=== PATIENT | male | born 1975 | race Hispanic/Latino ===

== ENCOUNTER 2023-10-05 12:52 | Emergency (ER) | payer SELFPAY ==
[~2023-10-05] VITALS: Ht 172.7 cm; Wt 81.0 kg
[2023-10-05 13:31] VITALS: BP 119/54
[2023-10-05 14:00] VITALS: BP 116/56
[2023-10-05 14:30] VITALS: BP 117/63
[2023-10-05] MEDS ORDERED: ZPAK PO (14:53)
[2023-10-05] MEDS ORDERED: AMOX/K CLAV875 M1 PO (14:53)
[2023-10-05] MEDS ORDERED: VENTOLIN HFA108 MCG PO ×2 (14:56)
[2023-10-05 15:04] VITALS: BP 117/63
[2023-10-06] MEDS ORDERED: BENZONATATE200 MG PO (02:26)
[2023-10-06] MEDS ORDERED: PROAIR RES108 MCG/AC PO (02:26)
== END 2023-10-05 15:14 | disposition home or self-care (01) | DRG 195 ==
LOC: ED 12:52
DX: J18.9 Pneumonia, unspecified organism (principal); Z20.822 Contact with and (suspected) exposure to COVID-19
CPT/HCPCS: Q9967

== ENCOUNTER 2023-10-05 22:13 | Emergency (ER) | payer SELFPAY ==
[~2023-10-05] VITALS: Ht 172.7 cm; Wt 68.0 kg
[~2023-10-05 22:13] MED LIST: AMOX/K CLAV875 M1 PO; VENTOLIN HFA108 MCG PO; ZPAK PO
[2023-10-05] MEDS ORDERED: BENZONATATE 200 MG/CAP PO PRN (22:25)
[2023-10-05] MEDS ORDERED: DEXAMETHASONE SOD. PHOSPHATE 10 MG/ML VIAL IV ONE (22:25)
[2023-10-05] MEDS ORDERED: IPRATROPIUM-Albuterol 0.5MG-2.5MG/3 ML NEB ONE (22:25)
[2023-10-05] MEDS ORDERED: ALBUTEROL SULFATE 2.5 MG VIAL NEB ONE (22:30)
[2023-10-05] MEDS ORDERED: SODIUM CHLORIDE 0.9% 1,000 ML IV ONE (22:35)
[2023-10-05] MEDS ORDERED: SODIUM CHLORIDE 0.45% 1,000 ML IV PRN (22:35)
[2023-10-05] MEDS ORDERED: cefTRIAXone SODIUM 2 GM in SODIUM CHLORIDE 0.9% 100 ML IV ONE (22:35)
[2023-10-05 23:44] LABS: BASO% 0.5 % (0-3); EOS% 2.3 % (0-8); HEMATOCRIT 32.9 % (39.0-50.0); HEMOGLOBIN 11.6 g/dl (14.0-18.0); IMMATURE GRANULOCYTES 0.1 % (0.0-5.0); LYMPH% 15.5 % (15-41); MEAN CELL VOLUME 87.3 fL CALC (80.0-100.0); MEAN CORPUSCULAR HGB 30.8 pG CALC (26.0-32.0); MEAN CORPUSCULAR HGB CONC 35.3 g/dL CAL (32.0-36.0); MONO% 8.7 % (2-13); NEUT# 6.66 thou/uL (1.82-7.42); NEUT% 72.9 % (42-76); RED BLOOD COUNT 3.77 mill/uL (4.70-6.10); RED CELL DISTRI WIDTH 12.8 % (11.5-15.5)
[2023-10-05 23:48] LABS: INTERNATIONAL NORMALIZED RATIO 1.1 RATIO (0.7-1.3)
[2023-10-05 23:55] LABS: BILIRUBIN, TOTAL 0.7 mg/dL (0.2-1.3); CREATININE 0.7 mg/dL (0.7-1.3); POTASSIUM 3.7 mmol/l (3.5-5.1)
[2023-10-06] LABS: PROTHROMBIN TIME 10.4 SECONDS (9.0-12.5)
[2023-10-06 00:08] LABS: D-DIMER 1.11 mg/L (0.19-0.60)
[2023-10-06] MEDS ORDERED: BUMETANIDE 1 MG/4 ML VIAL IV ONE (00:35)
[2023-10-06 01:20] VITALS: BP 119/64
[2023-10-06 01:30] VITALS: BP 128/60
[2023-10-06 01:45] VITALS: BP 121/58
[2023-10-06 02:00] VITALS: BP 124/62
[2023-10-06 02:15] VITALS: BP 112/55
[2023-10-06] MEDS ORDERED: BENZONATATE200 MG PO (02:26)
[2023-10-06] MEDS ORDERED: PROAIR RES108 MCG/AC PO (02:26)
[2023-10-06 02:30] VITALS: BP 130/56
== END 2023-10-06 03:00 | disposition home or self-care (01) | DRG 195 ==
LOC: ED 22:13
PROVIDERS: Emergency Medicine
DX: J18.9 Pneumonia, unspecified organism (principal)
CPT/HCPCS: Q9967

== ENCOUNTER 2023-10-07 23:12 | Inpatient (IN) | payer SELFPAY ==
[~2023-10-07] VITALS: Ht 172.7 cm; Wt 81.2 kg
[~2023-10-07 23:12] MED LIST changes: +BENZONATATE200 MG PO; +PROAIR RES108 MCG/AC PO
[2023-10-07] MEDS ORDERED: ALBUTEROL SULFATE 2.5 MG VIAL IN ONE (23:15)
[2023-10-07] MEDS ORDERED: FAMOTIDINE 10MG/ML 2ML SDV IV ONE (23:20)
[2023-10-07 23:27] VITALS: BP 145/66
[2023-10-07 23:31] VITALS: BP 132/67
[2023-10-07 23:37] LABS: BASO% 0.5 % (0-3); EOS% 2.1 % (0-8); HEMOGLOBIN 13.4 g/dl (14.0-18.0); IMMATURE GRANULOCYTES 0.2 % (0.0-5.0); MEAN CELL VOLUME 91.1 fL CALC (80.0-100.0); MEAN CORPUSCULAR HGB CONC 32.9 g/dL CAL (32.0-36.0); MONO% 9.2 % (2-13); NEUT# 8.09 thou/uL (1.82-7.42); RED BLOOD COUNT 4.47 mill/uL (4.70-6.10); RED CELL DISTRI WIDTH 12.9 % (11.5-15.5)
[2023-10-07 23:42] LABS: HEMATOCRIT 40.7 % (39.0-50.0)
[2023-10-07 23:46] LABS: ALBUMIN 4.4 g/dL (3.2-5.0); BILIRUBIN, TOTAL 0.8 mg/dL (0.2-1.3); CREATININE 0.8 mg/dL (0.7-1.3); POTASSIUM 3.8 mmol/l (3.5-5.1); TOTAL PROTEIN 7.8 g/dL (6.3-8.2)
[2023-10-07] MEDS ORDERED: guaiFENesin-CODEINE 200-20 MG/10 ML UDC PO ONE (23:55)
[2023-10-08] VITALS (10 sets, daily range): BP systolic 111–128; BP diastolic 50–93
[2023-10-08] MEDS ORDERED: ALUM & MAG HYDROX-SIMETHICONE 30 ML PO ONE (00:05)
[2023-10-08] MEDS ORDERED: SODIUM CHLORIDE 0.9% 1,000 ML IV ONE (00:05)
[2023-10-08] MEDS ORDERED: LIDOCAINE VISCOUS 2% 15 ML UDC PO ONE (00:05)
[2023-10-08] MEDS ORDERED: DEXAMETHASONE SOD. PHOSPHATE 10 MG/ML VIAL IV ONE (01:05)
[2023-10-08] MEDS ORDERED: Levofloxacin 750 mg Premix 150 ML IV SCH (01:05)
[2023-10-08] MEDS ORDERED: IPRATROPIUM-Albuterol 0.5MG-2.5MG/3 ML NEB PRN (07:50)
[2023-10-08] MEDS ORDERED: methylPREDNISolone Sod Succ 40 MG/ML SDV IV SCH (09:00)
[2023-10-09] VITALS (10 sets, daily range): BP systolic 102–125; BP diastolic 47–57
[2023-10-09] MEDS ORDERED: ACETAMINOPHEN 325 MG/TAB PO PRN (01:20)
[2023-10-09 04:38] LABS: BASO% 0.2 % (0-3); HEMOGLOBIN 12.1 g/dl (14.0-18.0); IMMATURE GRANULOCYTES 0.2 % (0.0-5.0); LYMPH% 5.5 % (15-41); MEAN CELL VOLUME 88.8 fL CALC (80.0-100.0); MEAN CORPUSCULAR HGB 30.7 pG CALC (26.0-32.0); MEAN CORPUSCULAR HGB CONC 34.6 g/dL CAL (32.0-36.0); NEUT# 8.22 thou/uL (1.82-7.42); NEUT% 89.1 % (42-76); RED BLOOD COUNT 3.94 mill/uL (4.70-6.10); RED CELL DISTRI WIDTH 12.6 % (11.5-15.5)
[2023-10-09 04:54] LABS: CREATININE 0.7 mg/dL (0.7-1.3); MAGNESIUM 2.4 mg/dL (1.6-2.3); POTASSIUM 4.3 mmol/l (3.5-5.1)
[2023-10-09 04:56] LABS: ALBUMIN 3.3 g/dL (3.2-5.0); BILIRUBIN, TOTAL 0.4 mg/dL (0.2-1.3); TOTAL PROTEIN 5.9 g/dL (6.3-8.2)
[2023-10-09] MEDS ORDERED: VANCOMYCIN HCL 1 GM in SODIUM CHLORIDE 0.9% 250 ML IV SCH (10:00)
[2023-10-09] MEDS ORDERED: methylPREDNISolone Sod Succ 40 MG/ML SDV IV SCH ×2 (11:00→14:00)
[2023-10-09] MEDS ORDERED: IPRATROPIUM-Albuterol 0.5MG-2.5MG/3 ML NEB SCH (11:00)
[2023-10-09] MEDS ORDERED: DiphenhydrAMINE HCL 25 MG CPLT PO PRN (11:10)
[2023-10-09] MEDS ORDERED: PIPERACILLIN Sodium-Tazobactam 4.5 GM in SODIUM CHLORIDE 0.9% 100 ML IV SCH (12:00)
[2023-10-10] VITALS (9 sets, daily range): BP systolic 116–125; BP diastolic 50–57
[2023-10-10 05:13] LABS: BASO% 0.1 % (0-3); HEMATOCRIT 38.2 % (39.0-50.0); HEMOGLOBIN 13.1 g/dl (14.0-18.0); IMMATURE GRANULOCYTES 0.3 % (0.0-5.0); LYMPH% 6.1 % (15-41); MEAN CELL VOLUME 89.3 fL CALC (80.0-100.0); MEAN CORPUSCULAR HGB 30.6 pG CALC (26.0-32.0); MEAN CORPUSCULAR HGB CONC 34.3 g/dL CAL (32.0-36.0); MONO% 4.3 % (2-13); NEUT# 9.06 thou/uL (1.82-7.42); NEUT% 89.2 % (42-76); RED BLOOD COUNT 4.28 mill/uL (4.70-6.10); RED CELL DISTRI WIDTH 12.9 % (11.5-15.5)
[2023-10-10 05:32] LABS: ALBUMIN 3.8 g/dL (3.2-5.0); BILIRUBIN, TOTAL 0.4 mg/dL (0.2-1.3); CREATININE 0.7 mg/dL (0.7-1.3); MAGNESIUM 2.6 mg/dL (1.6-2.3); POTASSIUM 4.3 mmol/l (3.5-5.1); TOTAL PROTEIN 6.6 g/dL (6.3-8.2)
[2023-10-10] MEDS ORDERED: VANCOMYCIN HCL 1,250 MG in SODIUM CHLORIDE 0.9% 225 ML IV SCH (11:00)
[2023-10-10] MEDS ORDERED: guaiFENesin-CODEINE 200-20 MG/10 ML UDC PO PRN (13:45)
[2023-10-10] MEDS ORDERED: IPRATROPIUM-Albuterol 0.5MG-2.5MG/3 ML NEB SCH (15:00)
[2023-10-11] VITALS: BP 120/51
[2023-10-11 04:00] VITALS: BP 104/50
[2023-10-11 04:18] VITALS: BP 104/50
[2023-10-11 04:55] LABS: BASO% 0.1 % (0-3); HEMATOCRIT 36.3 % (39.0-50.0); HEMOGLOBIN 12.3 g/dl (14.0-18.0); IMMATURE GRANULOCYTES 0.9 % (0.0-5.0); LYMPH% 3.8 % (15-41); MEAN CORPUSCULAR HGB 30.8 pG CALC (26.0-32.0); MEAN CORPUSCULAR HGB CONC 33.9 g/dL CAL (32.0-36.0); MONO% 5.1 % (2-13); NEUT# 7.79 thou/uL (1.82-7.42); NEUT% 90.1 % (42-76); RED BLOOD COUNT 3.99 mill/uL (4.70-6.10); RED CELL DISTRI WIDTH 12.9 % (11.5-15.5)
[2023-10-11 05:14] LABS: ALBUMIN 3.4 g/dL (3.2-5.0); BILIRUBIN, TOTAL 0.3 mg/dL (0.2-1.3); CREATININE 0.7 mg/dL (0.7-1.3); MAGNESIUM 2.3 mg/dL (1.6-2.3); POTASSIUM 4.3 mmol/l (3.5-5.1); TOTAL PROTEIN 5.9 g/dL (6.3-8.2)
[2023-10-11 07:53] VITALS: BP 95/50
[2023-10-11 11:09] VITALS: BP 100/41
[2023-10-11 16:56] VITALS: BP 123/60
== END 2023-10-11 18:30 | disposition short-term general hospital (02) | DRG 194 ==
LOC: ED 23:12 → ED-I 10-08 00:50 → ED 10-08 01:22 → MS2 10-08 01:23
PROVIDERS: Emergency Medicine; Nurse Practitioner Family; ADMIT Internal Medicine; ATTEND Internal Medicine
DX: J18.9 Pneumonia, unspecified organism (principal); R04.2 Hemoptysis; R09.02 Hypoxemia; Z20.822 Contact with and (suspected) exposure to COVID-19
CPT/HCPCS: J3370